=== PATIENT | female | born 1955 | race Caucasian/White ===

== ENCOUNTER 2021-01-24 09:07 | Outpatient (CLI) | payer MEDICARE | END 2021-01-24 09:08 | disposition home or self-care (01) | LOC: BICMAMMO 09:07 | PROVIDERS: ATTEND Family Medicine | DX: M81.0 Age-related osteoporosis without current pathological fracture (principal); M85.852 Other specified disorders of bone density and structure, left thigh | CPT/HCPCS: 77080 ==

== ENCOUNTER 2022-02-14 12:32 | Outpatient (CLI) | payer MEDICARE | END 2022-02-14 12:33 | disposition home or self-care (01) | LOC: BICMAMMO 12:32 | PROVIDERS: ATTEND Family Medicine | DX: Z12.31 Encounter for screening mammogram for malignant neoplasm of breast (principal); Z12.2 Encounter for screening for malignant neoplasm of respiratory organs; I25.10 Atherosclerotic heart disease of native coronary artery without angina pectoris; J44.9 Chronic obstructive pulmonary disease, unspecified; J98.4 Other disorders of lung; Z87.891 Personal history of nicotine dependence | CPT/HCPCS: 71271; 77063; 77067 ==